=== PATIENT | female | born 1950 | race Caucasian/White ===

== ENCOUNTER 2019-06-23 20:28 | Emergency (ER) | payer MEDICARE, SELFPAY ==
--- NOTE | ~2019-06-23 | XR_ITS ---
EXAMINATION: XR chest 2V DATE: 06/23/2019 21:07 INDICATION: Mid chest pain and hypertension TECHNIQUE: PA and lateral views of the chest are obtained. COMPARISON: None available FINDINGS: The lungs are free of acute opacities. There is no pleural effusion or pneumothorax. The ca rdiomediastinal silhouette is normal. There is moderate thoracic spondylosis. IMPRESSION: 1. No acute cardiopulmonary abnormality. Reviewed, dictated and finalized at location A. [facility] [employer] [facility]
[2019-06-23 20:30] VITALS: BP 162/68; PULSE 72; RESP 16; TEMP 36.3; O2SAT 100
[2019-06-23 20:36] VITALS: BP 169/68; PULSE 72; RESP 20; TEMP 36.7; O2SAT 100
--- NOTE | 2019-06-23 20:39 | ECG_ITS ---
Measurements Intervals [place] Rate: 68 P: 57 NV: 189 QRS: -10 QRSD: 95 T: 52 QT: 395 QTc: 422 Interpretive Statements SINUS RHYTHM VOLTAGE CRITERIA FOR LVH BORDERLINE ST ABNORMALITY- LATERAL LEADS BASELINE ARTIFACT- I, II BORDERLINE ECG Electronically Signed On 06-24-2019 7:10:14 [facility] by Jj Palmer D.O.
[2019-06-23 20:56] LABS: Basophils Percent Auto 0.6 % (0.2-1.2); Eosinophils Absolute Auto 0.3 K/mm3 (0-0.3); Eosinophils Percent Auto 4.5 % (0-4.4); Hemoglobin 13.5 g/dL (12.0-15.0); Immature Granulocyte Absolute 0.01 K/mm3 (0.00-0.031); Immature Granulocyte Percent A 0.1 % (0-0.5); Lymphocytes Absolute Auto 2.09 K/mm3 (0.9-3.2); Lymphocytes Percent Auto 29.1 % (18.3-44.2); Mean Corpuscular HGB Conc 32.1 g/dl (32-36); Mean Corpuscular Hemoglobin 27.8 pg (26-34); Mean Corpuscular Volume 86.6 fl (80-100); Mean Platelet Volume 9.1 fl (7.4-10.4); Monocytes Absolute Auto 0.6 K/mm3 (0.1-0.6); Monocytes Percent Auto 7.6 % (2.6-8.5); Neutrophils Absolute Auto 4.2 K/mm3 (1.3-6.7); Neutrophils Percent Auto 58.1 % (45.5-73.1); Platelet Count Result 280 k/mm3 (150-375); Red Blood Count 4.85 M/mm3 (4.2-5.4); Red Cell Distribution Width 13.3 % (11.5-14.5); White Blood Count 7.2 K/mm3 (4.5-10.0)
[2019-06-23 21:08] LABS: Blood Urea Nitrogen 19 mg/dL (7-17); Calcium 9.3 mg/dL (8.4-10.2); Carbon Dioxide 26 mmol/L (22-30); Chloride 101 mmol/L (98-107); Estimated Glomerular Filt Rate > 60; Glucose 107 mg/dL (65-105); Potassium 3.8 mmol/L (3.4-5.0); Sodium 141 mmol/L (137-145)
[2019-06-23 21:09] LABS: INR 0.9; Prothrombin Time 12.1 Seconds (11.1-14.7)
--- NOTE | 2019-06-23 21:18 | ED.CHESTPAIN ---
HPI - Chest Pain General Chief Complaint: Chest Pain Stated Complaint: CP Time Seen by Provider: 06/23/19 21:18 Source: patient Mode of arrival: ambulatory Limitations: no limitations History of Present Illness HPI narrative: A 68 y/o female, with a PMHx of erosive osteoarthritis, presents to the ED with c/o nonradiating left-sided CP. Pt states the pain began 4 hours ago after she had gotten home from the car wash. Pt did not experience any pain while she was drying off her car. Pt thought the pain was muscle related but she called her and he was making me feel more anxious about it. Pt noticed that her pain was worse when laying down so she decided to come to the ED for evaluation. Pt is currently symptomatic in the ED bed. Her pain is not worse on exertion. Pt has never had a stress test. She denies rhinorrhea, a cough, SOB, sweats, dizziness, smoking, alcohol use, and a PMHx of blood clots. Pt took Ibuprofen 200 mg and ASA today. Onset (ago): hour(s) (4) Timing of current episode: still present Pain location: left chest Pain radiation: none Related Data Home Medications Medication Instructions Recorded Confirmed amlodipine 06/23/19 duloxetine mg PO 06/23/19 hydroxychloroquine 06/23/19 losartan 06/23/19 metoprolol succinate PO 06/23/19 sulfasalazine 06/23/19 Allergies Allergy/AdvReac Type Severity Reaction Status Date / Time Sulfa (Sulfonamide Allergy Mild Verified 09/13/13 18:21 Antibiotics) Review of Systems Review of Systems: All systems reviewed & are unremarkable except as noted in HPI and below Constitutional: Comments: Denies: sweats, dizziness ENT: Comments: Denies: rhinorrhea Cardiovascular: Cardiovascular: Reports chest pain (left-sided) Respiratory: Respiratory: Denies cough and Denies dyspnea PMFSH Past Medical History Medical History (Updated 06/24/19 @ 00:24 by Dee Dee Dillard MD) Bone spur removed from left shoulder Erosive osteoarthritis HLD (hyperlipidemia) HTN (hypertension) UTI (urinary tract infection) Surgical History Surgical History H/O repair of left rotator cuff History of bladder surgery bladder tie-up Social History Social History (Updated 06/23/19 @ 21:57 by Mirta Bush Smoking status: Never smoker Substance use: never Comments PCP: Dr. Chacon Exam Narrative: Exam Narrative: GENERAL: Well-appearing, well-nourished, and in no acute distress. HEAD: Normocephalic, atraumatic EYES: PERRLA and EOMI, conjunctiva clear without discharge THROAT:Mucous membranes moist, Oropharynx normal without erythema, exudate, peritonsillar swelling or fluctuance NECK: Supple, without lymphadenopathy or mass RESPIRATORY: No respiratory distress, Airway patent, Respirations non-labored, Clear to auscultation without rales, rhonchi or wheeze; reproducible sternal tenderness HEART: Regular rate and rhythm. No murmur heard. Normal peripheral pulses. ABDOMEN: Soft, nontender, nondistended, normal active bowel sounds. No masses. No rebound or guarding, No organomegaly. EXTREMITIES: No edema, normal strength with full range of motion. SKIN: Warm, dry, normal color without rash NEURO: Alert and oriented x3. CN 2-12 grossly intact. No focal deficits. PSYCH: Normal mood and affect. Course Vital Signs Vital signs: Vital Signs Temperature 97.4 F L 06/23/19 20:30 Pulse Rate 72 06/23/19 20:30 Respiratory Rate 16 06/23/19 20:30 Blood Pressure 162/68 H 06/23/19 20:30 Pulse Oximetry 100 06/23/19 20:30 Temperature 98.6 F 06/24/19 00:29 Pulse Rate 84 06/24/19 00:29 Respiratory Rate 16 06/24/19 00:29 Blood Pressure 153/84 H 06/24/19 00:29 Pulse Oximetry 100 06/24/19 00:29 MDM - Chest Pain Lab Data Result diagrams: 06/23/19 20:49 06/23/19 20:49 Labs: Lab Results 06/23/19 06/23/19 06/23/19 Range/Units 20:49 20:49 20:49 WBC 7
[2019-06-23 21:20] LABS: Troponin I < 0.012 ng/mL (0.000-0.034)
[2019-06-23 22:00] LABS: D Dimer 0.27 ug/mL (<0.48)
[2019-06-23 22:19] VITALS: BP 130/80; PULSE 78; RESP 18; O2SAT 98
--- NOTE | 2019-06-23 23:00 | PC.NURSE ---
report taken from karuna landaverde at this time
[2019-06-23 23:51] VITALS: BP 150/71; PULSE 64; RESP 19; O2SAT 100
[2019-06-24 00:17] LABS: Troponin I < 0.012 ng/mL (0.000-0.034)
[2019-06-24 00:29] VITALS: BP 153/84; PULSE 84; RESP 16; TEMP 37; O2SAT 100
== END 2019-06-24 00:38 | disposition home or self-care (01) ==
PROVIDERS: Emergency Provider General Practice
DX: R07.9 Chest pain, unspecified (principal); E78.5 Hyperlipidemia, unspecified; I10 Essential (primary) hypertension; M15.4 Erosive (osteo)arthritis; Z87.440 Personal history of urinary (tract) infections
CPT/HCPCS: 36415; 71046; 80048; 84484; 85025; 85380; 85610; 85730; 93005; 99284